=== PATIENT | female | born 1980 | race Hispanic/Latino ===

== ENCOUNTER 2020-04-27 13:34 | Emergency (ER) | payer MEDICAID, OTHER ==
[~2020-04-27 13:34] MED LIST: PNV1TABL17 PO; VITA1CAP85 PO
== END 2020-04-27 18:51 | disposition home or self-care (01) ==
LOC: EDH 13:34
DX: S06.0X0A Concussion without loss of consciousness, initial encounter (principal); S02.2XXA Fracture of nasal bones, initial encounter for closed fracture; S40.012A Contusion of left shoulder, initial encounter; S05.12XA Contusion of eyeball and orbital tissues, left eye, initial encounter; G44.319 Acute post-traumatic headache, not intractable; R11.10 Vomiting, unspecified; Z98.890 Other specified postprocedural states; Y04.2XXA Assault by strike against or bumped into by another person, initial encounter; Y93.89 Activity, other specified; Y92.89 Other specified places as the place of occurrence of the external cause; Y99.8 Other external cause status
CPT/HCPCS: 70450; 70486; 73030; 81025

== ENCOUNTER 2020-09-27 17:13 | Emergency (ER) | payer OTHER ==
[2020-09-27] MEDS ORDERED: HYDROCODONE/ACETAMINOPHEN 10/325 MG TAB ONE (17:41)
== END 2020-09-27 18:28 | disposition home or self-care (01) ==
LOC: EDH 17:13
DX: S63.8X2A Sprain of other part of left wrist and hand, initial encounter (principal); S40.011A Contusion of right shoulder, initial encounter; S80.01XA Contusion of right knee, initial encounter; Y04.2XXA Assault by strike against or bumped into by another person, initial encounter; Y93.89 Activity, other specified; Y92.89 Other specified places as the place of occurrence of the external cause; Y99.8 Other external cause status
CPT/HCPCS: 73030; 73110; 73130; 73562

== ENCOUNTER 2022-04-08 07:01 | Day surgery (SDC) | payer OTHER, MEDICAID ==
[2022-04-07 09:04] VITALS: BP 140/88
[~2022-04-08] VITALS: Ht 175.3 cm; Wt 95.1 kg
[2022-04-08] VITALS (19 sets, daily range): BP systolic 101–122; BP diastolic 55–74
[~2022-04-08 07:01] MED LIST changes: +BUPIVACAINE/PF 0.5% 10ML VIAL ONE; +IRON PO; +MVI PO; -PNV1TABL17 PO; -VITA1CAP85 PO
[2022-04-08] MEDS ORDERED: SUCCINYLCHOLINE 200MG/10ML SYR ONE (07:18)
[2022-04-08] MEDS ORDERED: KETOROLAC 30MG VIAL (30MG/ML) ONE (07:18)
[2022-04-08] MEDS ORDERED: ONDANSETRON 4MG INJ ONE (07:18)
[2022-04-08] MEDS ORDERED: MIDAZOLAM HCL 1 MG/ML 2ML VIAL ONE (07:19)
[2022-04-08] MEDS ORDERED: FENTANYL CITRATE PF 50 MCG/1 ML 2ML VIAL ONE (07:19)
[2022-04-08] MEDS ORDERED: PROPOFOL 10 MG/ML 20ML VIAL IV ONE (07:19)
[2022-04-08] MEDS ORDERED: LACTATED RINGERS 1000ML 1,000 ML IV ONE (07:21)
[2022-04-08] MEDS: CEFAZOLIN SODIUM 2 GM VIAL IVPB SCH ×2 (07:24→07:52)
[2022-04-08 07:27] LABS: BASOPHILS % (AUTO) 1.1 % (0.0-5.0); EOSINOPHILS % (AUTO) 8.9 % (0.0-8.0); HEMATOCRIT 33.7 % (36-48); LYMPHOCYTES % (AUTO) 26.4 % (21.0-51.0); MEAN CORPUSCULAR HEMOGLOBIN 20.3 pg (27.0-33.0); MEAN CORPUSCULAR HGB CONC 29.7 g/dL (32.0-36.0); MEAN CORPUSCULAR VOLUME 68.4 fL (79-99); MONOCYTES % (AUTO) 8.3 % (3.0-13.0); NEUTROPHILS % (AUTO) 54.6 % (40.0-77.0); PLATELET COUNT (AUTO) 308 K/uL (130-400); RED BLOOD CELL COUNT(AUTO) 4.93 MIL/uL (4.00-5.50); RED CELL DISTRIBUTION WIDTH 20.7 % (11.0-15.5); WHITE BLOOD COUNT (AUTO) 8.5 K/uL (4.8-10.8)
[2022-04-08] MEDS ORDERED: EPHEDRINE SULFATE 50 MG/ML AMPULE ONE (08:14)
[2022-04-08] MEDS ORDERED: ROCURONIUM 10MG/1ML SYR 10 MG/ML ML ONE (08:20)
[2022-04-08] MEDS ORDERED: MEPERIDINE-PF 25 MG/ML SYG ONE ×2 (10:46→10:57)
== END 2022-04-08 12:40 | disposition home or self-care (01) ==
LOC: DAH 07:01
PROVIDERS: ATTEND Surgery
DX: K43.2 Incisional hernia without obstruction or gangrene (principal); Z20.822 Contact with and (suspected) exposure to COVID-19; E66.9 Obesity, unspecified; Z90.49 Acquired absence of other specified parts of digestive tract; Z98.890 Other specified postprocedural states; Z79.899 Other long term (current) drug therapy; Z98.891 History of uterine scar from previous surgery; Z87.891 Personal history of nicotine dependence; Z72.89 Other problems related to lifestyle; Z83.3 Family history of diabetes mellitus; Z68.31 Body mass index [BMI] 31.0-31.9, adult
CPT/HCPCS: 49654; S2900; 36415; 81025; 84703; 85025; 87426; J0330; J1885; J2175; J2250; J2405; J2704; J3010; J3490; J7030; J7120